=== PATIENT | male | born 1940 | race Caucasian/White ===

== ENCOUNTER 2025-02-23 15:29 | Emergency (ER) | payer MEDICARE, SELFPAY ==
[2025-02-23] VITALS (39 sets, daily range): BP systolic 166–203; BP diastolic 67–125; PULSE 78–107; RESP 12–31; TEMP 36.6–36.7; O2SAT 81–100; BMI 25.7
[2025-02-23 16:28] LABS: Absolute Lymphocyte Count 0.92 X10^3/uL (0.83-4.51); Absolute Neutrophil Count 10.5 X10^3/uL (2.0-7.7); Basophil# 0.03 X10^3/uL; Basophil% 0.2 % (0-1); Eosinophil# 0.04 X10^3/uL; Eosinophils% 0.3 % (0-5); Hematocrit 40.3 % (40-54); Hemoglobin 13.3 g/dL (13.0-16.5); Lymphocyte # 0.92 X10^3/ul (0.83-4.51); Lymphocyte % 7.6 % (19-41); Mean Corpuscular Hgb 29.5 pg (27.0-32.0); Mean Corpuscular Volume 89.4 fL (80-94); Mean Platelet Vol. 9.5 fl (6.2-12.0); Monocyte# 0.46 X10^3/uL; Monocyte% 3.8 % (0-10); NRBC Flagged by Analyzer 0 % (0-5); Neutrophil # 10.54 X10^3/uL (2.7-7.7); Neutrophil % 86.7 % (47-70); Platelet Count 267 K/mm3 (150-450); RBC Distribution Width CV 13.7 % (11.6-14.6); RBC Distribution Width SD 45.1 fl (35.1-43.9); Red Blood Count 4.51 M/mm3 (4.6-6.2); White Blood Count 12.2 K/mm3 (4.4-11.0)
--- NOTE | 2025-02-23 16:30 | CT_ITS ---
PROCEDURE: SOFT TISSUE NECK WITH CONTRAST 02/23/2025 REASON FOR EXAM: BIPHASIC STRIDOR AND HEMOPTYSIS TECHNIQUE: CT of the soft tissues of the neck from the orbits to the upper mediastinum with intravenous contrast. CONTRAST: 100 mL of Isovue 370 One or more dose reduction techniques were used (e.g., Automated exposure control, adjustment of the mA and/or kV according to patient size, use of iterative reconstruction technique). RADIATION DOSE SUMMARY: DLP: 1171 mGycm COMPARISON: None FINDINGS: Airway: Grossly unremarkable except the distal trachea and left primary bronchi; please see concurrent CT chest for further details. Salivary glands: Unremarkable Lymph nodes: No gross adenopathy within the neck and cervical chain. Thyroid: 9 mm nodule within the left thyroid gland. 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 Somewhat diminutive right CARDIOVASCULAR RADIOLOGIC TECHNOLOGIST, partially evaluated. Orbits: Unremarkable Paranasal sinuses and mastoids: Unremarkable Lung apices: Please see concurrent CT chest Upper mediastinum: Left paratracheal heterogenously enhancing mass (series 3, image 1) better characterized on concurrent CT chest. Bones: Moderate multilevel degenerative changes of the cervical spine. No acute fractures. CT/Soft Tissue Neck WITH Contrast IMPRESSION: Please see concurrent CT chest for evaluation of upper mediastinal mass with in vasion of the left distal tracheal wall and left primary bronchi wall. No gross adenopathy within the bilateral neck soft tissu es or cervical chains. Reading Location: [id number]
--- NOTE | 2025-02-23 16:30 | CT_ITS ---
PROCEDURE: CTA CHEST W/WO CONTRAST 02/23/2025 REASON FOR EXAM: DYSPNEA, EXPIRATORY WHEEZING AND HEMOPTYSIS TECHNIQUE: CTA axial imaging of the chest with intravenous contrast. Multiplanar and multisequence images were obtained. PATIENT PREPARATION: Per protocol CONTRAST: 100 mL of Isovue 370 One or more dose reduction techniques were used (e.g., Automated exposure control, adjustment of the mA and/or kV according to patient size, use of iterative reconstruction technique). RADIATION DOSE SUMMARY: DLP: 1171 mGycm . COMPARISON: None FINDINGS: PULMONARY ARTERIES: No evidence of pulmonary embolism. LUNGS AND PLEURA: No consolidations. Scattered tree-in-bud peripheral densities may reflect atypical pneumonia versus postinflammatory changes. Biapical pneumatoceles. Mild pulmonary emphysema. No definite pulmonary edema. No mass or nodule. No pleural effusion. No pneumothorax. Calcification of the right pleura. MEDIASTINUM: Left paratracheal mass measuring 4.9 x 3.5 x 3.8 cm (series 2, image 94 and series 601.2, image 142) with invasion of the distal left tracheal wall and invasion and abutment of the proximal left primary bronchi airway and wall with mild airway stenosis. Scattered smaller mediastinal lymph nodes. The heart shows no acute findings. Mild coronary atherosclerosis. The aorta shows no acute findings. The pulmonary trunk, and branches of the vessels in the mediastinum are within normal limits. SUPRACLAVICULAR AND AXILLARY: No abnormalities seen in these regions. No mass or significant lymphadenopathy. UPPER ABDOMEN: Gallstone. BONES AND SOFT TISSUES: The ribs are unremarkable. The visualized spine shows no significant acute findings. No focal bony mass lesions noted. The subcutaneous soft tissues are unremarkable. 9 mm nodule within the left thyroid gland. CT/CTA Chest W/WO Contrast IMPRESSION: Left paratracheal mass measuring 4.9 x 3.5 x 3.8 cm (series 2, image 94 and ser ies 601.2, image 142) with invasion of the distal left tracheal wall and invasion and abutment of the proximal left primary bron chi airway and wall with mild airway stenosis. No acute pulmonary emboli. No focal consolidation. Scattered tree-in-bud perip heral densities may reflect atypical pneumonia versus postinflammatory changes. Biapical pneumatoceles. Mild pulmonary emphys holly. Calcification of the right pleura. Reading Location: [id number]
[2025-02-23 16:38] LABS: International Normalized Ratio 1.1; Prothrombin Time (Protime)PT. 13.9 SECONDS (11.7-14.9)
[2025-02-23 16:46] LABS: Anion Gap 11 (5-15); BUN 35 mg/dL (4-19); BUN/Creat Ratio 28.8 RATIO (10-20); Carbon Dioxide 23.8 mmol/L (21.0-32.0); Chloride 104 mmol/L (98-108); Creatinine, Serum 1.21 mg/dL (0.70-1.20); EST Glomerular Filtration Rate 59 (>60); Estimated Creatinine Clearance 46.26 ml/min (50-250); Glucose 104 mg/dL (70-99); Potassium 4.4 mmol/L (3.3-5.1); Sodium Level 138 mmol/L (133-145)
[2025-02-23] MEDS: DiphenhydrAMINE 50 MG/ML Syringe IV (16:47)
--- NOTE | 2025-02-23 16:49 | EX.ED.DYSGE1 ---
HPI History of Present Illness Chief Complaint: GI Bleed Detail of Chief Complaint: Hemoptysis not hematemesis Informant: patient, legal guardian and family Onset/Context/Timing Onset: Weeks (Onset 1 to 2 weeks ago) Context: Gradual Onset Timing: Intermittent Quality: Alberto hemoptysis with clots Location: Respiratory Current Severity: Moderate Maximum Severity: Moderate Worsened by: Nothing Relieved by: Nothing Associated Symptoms Associated Symptoms: Detailed HPI narrative Narrative Narrative: Patient is a 84-year-old male. He has history of COPD. He has not smoked in 20 years. He was seen at outside facility last February 17. He had a chest x-ray, CBC, electrolyte panel, troponin and EKG. Chest x-ray with single view. states he has 2 known nodules on his lung with no change. There is no history of VTE. He denies leg pain or discoloration. He has had swelling of his feet. His not been as active. He denies recent travel, surgery or hospitalization. He was treated with prednisone for his bronchitis. Patient does have history of dysphonia. He is seen by data collection technician who is affiliated at [facility]. He had a recent scope, January of this year. 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 The abnormal breathing sounds started 1 to 1.5 weeks ago. The hemoptysis started 1 to 2 weeks ago. He is not on an anticoagulant or antithrombotic. He denies fever, chills night sweats. Nuys headache, visual, ocular auditory symptoms. He denies upper respiratory infectious symptoms other than a cough and hemoptysis. He denies abdominal pain, nausea, vomiting or diarrhea. He denies melena or hematochezia. He denies hematuria. He denies bruising easily. Prior similar symptoms: Yes Recent Illness/Hospitalization: Yes (Records for office visit at [facility] were reviewed as well as no) [facility] Medical History HTN (hypertension) High cholesterol GERD (gastroesophageal reflux disease) Neuropathy Gout COPD (chronic obstructive pulmonary disease) Allergy/AdvReac Type Severity Reaction Status Date / Time iodine Allergy Mild Itching Verified 02/23/25 15:31 lansoprazole (From Prevacid) Allergy Mild Itching Verified 02/23/25 15:31 Social History (Updated 02/23/25 @ 16:[address] Jules Dacosta MD) household members: spouse Smoking Status: Former smoker ROS ROS ED Constitutional Constitutional ED: Reports weight loss and other Details: Patient reports a 6 pound weight loss over the past week. ; Denies chills, fever(s), subjective or sweats Eyes Eyes: Denies blurry vision or change in vision ENT ENT ED: Reports other Details: Dysphonia which has been present since October. Possibly slightly worse. ; Denies ear pain, rhinorrhea or sore throat Cardiovascular Cardiovascular: Denies chest pain, orthopnea, palpitations, paroxysmal nocturnal dyspnea or racing heartbeat Respiratory/Chest Respiratory/Chest: Reports cough, dyspnea, dyspnea on exertion and other Details: Hemoptysis with clots. Also complains of wheezing. Reports sleeping with 2 pillows recently for comfort ; Denies orthopnea or paroxysmal nocturnal dyspnea Gastrointestinal Gastrointestinal: Reports constipation and other Details: informing over the past week has had problems with constipation. ; Denies abdominal pain, diarrhea, melena, nausea or vomiting Genitourinary Genitourinary ED: Denies dysuria or hematuria Musculoskeletal Musculoskeletal: Denies back pain or neck pain Integumentary Denies rash Neurologic Neurologic: Denies headache(s) or weakness Endocrine Endocrinology: Denies cold intolerance or heat intolerance Hematologic/Lymphatic Hematologic/Lymphatic: Reports systems reviewed and no addt'l complaints, except as documented EXAM Physical Exam Const Vital Signs: 02/23/25 15:31 02/23/25 15:53 02/23/25 15:55 Temperature 97.8 F Temperature Source Oral Pulse Rate 95 90 Respiratory Rate 16 16 Respiratory Effort Normal Non-Labored Respiratory Depth Shallow Respiratory Pattern Tachypnea Blood Pressure 197/75 H Blood Pressure Mean 115 Pulse Ox 96 95 Oxygen Delivery Method Room Air Room Air 02/23/25 16:00 02/23/25 16:15 02/23/25 16:30 Temperature Temperature Source Pulse Rate 91 84 80 Respiratory Rate 31 H 17 17 Respiratory Effort Respiratory Depth Respiratory Pattern Blood Pressure Blood Pressure Mean Pulse Ox 95 97 Oxygen Delivery Method 02/23/25 16:45 02/23/25 16:46 02/23/25 17:00 Temperature Temperature Source Pulse Rate 84 82 Respiratory Rate 15 13 Respiratory Effort Respiratory Depth Respiratory Pattern Blood Pressure 171/67 H 169/80 H Blood Pressure Mean 95 108 Pulse Ox 99 98 Oxygen Delivery Method 02/23/25 17:15 02/23/25 17:27 02/23/25 17:30 Temperature Temperature Source Pulse Rate 78 78 Respiratory Rate 21 H 19 H Respiratory Effort Respiratory Depth Respiratory Pattern Blood Pressure 169/80 H Blood Pressure Mean 109 Pulse Ox 98 98 99 Oxygen Delivery Method Room Air 02/23/25 17:45 02/23/25 18:00 02/23/25 18:15 Temperature Temperature Source Pulse Rate 83 83 85 Respiratory Rate 21 H 14 19 H Respiratory Effort Respiratory Depth Respiratory Pattern Blood Pressure 166/125 H Blood Pressure Mean 138 Pulse Ox 96 96 97 Oxygen Delivery Method 02/23/25 18:30 02/23/25 18:57 02/23/25 19:00 Temperature Temperature Source Pulse Rate 87 87 89 Respiratory Rate 17 20 H Respiratory Effort Respiratory Depth Respiratory Pattern Blood Pressure 203/83 H Blood Pressure Mean 114 Pulse Ox 98 81 95 Oxygen Delivery Method Positive well nourished and well developed Constitutional Narrative: Patient has audible inspiratory and expiratory stridor. Patient has dysphonia. General Appearance ED: well developed and NAD; Negative for cyanotic, diaphoretic or pallor HEENT Reports moist mucous membranes HEENT Narrative: Head is atraumatic no cephalic. Ears normal. Nares patent. There is no drainage or discharge noted. Posterior pharynx reveals a midline uvula. There is no deviation with protrusion. Patient does have dysphonia. Negative for trauma or tenderness Eyes PERRL and EOMs intact bilaterally General Eye ED: Negative for pale conjunctiva or scleral icterus Neck no lymphadenopathy, supple and no JVD Neck Narrative: Trachea is midline. Patient has biphasic stridor. Chest Wall inspection of chest normal and palpation of chest normal Resp normal respiratory effort and No clear to auscultation bilaterally Auscultation: wheezes expiratory wheezes and scattered wheezes (Predominantly of the lower lung ordonez bilaterally) Cardio regular rate, regular rhythm, S1 normal heart sound, S2 normal heart sound and no murmurs GI normal to inspection, nondistended, normoactive bowel sounds, non-tender, non-distended and no masses; Negative for hepatosplenomegaly Extremity normal to inspection Extremity Narrative: 1 mm pitting edema right and left foot. Neuro oriented x3 and CN's II-XII intact bilaterally Sensorium / Orientation: alert Motor Exam: strength 5/5 throughout Psych mental status grossly normal Psych Narrative: When I went back into assess what patient's allergy is to iodine he appeared flushed. informing that he is crying. He informed that he has itching. Skin no rashes or lesions noted, no wounds and skin turgor normal General Skin Exam: Negative for jaundice or pallor MDM MDM MDM Narrative Medical decision making narrative: Patient not improving with aerosol and prednisone and has alberto mopped assist with biphasic stridor need to assess for neck pathology and pulmonary pathology. CT of the neck with contrast and CTA of the chest was obtained as well as appropriate blood work. CBC was obtained to assess white count differential and H&H as well as platelet count. Of note there is no petechia of the lower extremity. Electrolyte panel to assess renal function since he will need CT with contrast. Since he had a normal troponin and chest x-ray that was single view this was not repeated specially since a CAT scan is warranted. History & Record Review Additional record(s) reviewed:: Prior outpatient record (Outpatient records from [facility] and ENT records from 1 week ago and January respectively.) Lab Data Attestation: I reviewed the patient's lab results. Lab results narrative: White count slight elevated 12.2 with left. This may be due to prednisone. H&H is normal. Electrolyte panel reveals a creatinine of 1.21 with an estimated GFR of 59. Glucose slightly elevated at 104 with a normal CO2 anion gap. PT/INR is normal. Platelet count is normal. Labs: Laboratory Results - last 24 hr 02/23/25 16:15 WBC 12.2 H RBC 4.51 L Hgb 13.3 Hct 40.3 MCV 89.4 MCH 29.5 MCHC 33.0 RDW Std Deviation 45.1 H RDW Coeff of Elizabeth 13.7 Plt Count 267 MPV 9.5 Immature Gran % (Auto) 1.400 H Neut % (Auto) 86.7 H Lymph % (Auto) 7.6 L [place] % (Auto) 3.8 Eos % (Auto) 0.3 Baso % (Auto) 0.2 Absolute Neuts (auto) 10.5 H Absolute Lymphs (auto) 0.92 Nucleated RBC % 0 PT 13.9 INR 1.1 Sodium 138 Potassium 4.4 Chloride 104 Carbon Dioxide 23.8 Anion Gap 11 BUN 35 H Creatinine 1.21 H Estim Creat Clear Calc 46.26 L Est GFR (MDRD) Non-Af 59 L BUN/Creatinine Ratio 28.8 H Glucose 104 H Calcium 9.0 Radiography Diagnostic Testing: Clinical Impression(s) from Imaging Studies Chest CTA 02/23/25 16:30 IMPRESSION: Left paratracheal mass measuring 4.9 x 3.5 x 3.8 cm (series 2, image 94 and series 601.2, image 142) with invasion of the distal left tracheal wall and invasion and abutment of the proximal left primary bronchi airway and wall with mild airway stenosis. No acute pulmonary emboli. No focal consolidation. Scattered tree-in-bud peripheral densities may reflect atypical pneumonia versus postinflammatory changes. Biapical pneumatoceles. Mild pulmonary emphysema. Calcification of the right pleura. Reading Location: [facility] Soft Tissue Neck CT 02/23/25 16:30 IMPRESSION: Please see concurrent CT chest for evaluation of upper mediastinal mass with invasion of the left distal tracheal wall and left primary bronchi wall. No gross adenopathy within the bilateral neck soft tissues or cervical chains. Reading Location: [facility] Patient, spouse and son were made aware of the CT findings. They were informed that the he will require transfer. is contacting other family which determine which facility to transfer. Options were [facility] in [place], [facility] in [place], [facility] in [place] and [facility] in [place]. Management Discussion w/another healthcare provider: Radiologist (Spoke with radiologist. He informed me of the mass and findings.) and Other (Spoke with [facility] Transfer line. She recommended [facility]. I spoke with the nurse at [facility] transfer line. He will contact both cardiothoracic and pulmonary. After peaking with cardiothoracic and pulmonary recommended admission to ICU. I did speak with Dr. Barorw. Dr. Bearden) Critical Care Time Critical Care Time: Yes Critical care time (excluding procedures): 30-74 minutes (33), Including time spent: (History, physical, documentation, review of records from [facility] and outside ER from last week, review of prior labs independent rotation of laboratory results and review of images), Discussing w/Patient &/or Family/Charter Bus Driver (Discussion with patient, spouse and family emergency regarding need for transfer. They requested [facility] Discussing w/Consultants (Spoke to transfer nurse at [facility] That referred to [facility] because of the findings on CAT scan and need for higher level of care and reason for transfer to [facility]) and Arranging Admission or Transfer (Documented prior portion of the record) Discharge Plan Triage Chief Complaint: GI Bleed ED Provider: Jules Dacosta Dx/Rx/DC Orders Clinical Impression: Major hemoptysis, Peritracheal mass, Paralysis of left vocal cord, Biphasic stridor, Elevated blood pressure reading with diagnosis of hypertension, Prerenal azotemia, Elevated serum creatinine, Unintentional weight loss of 1-2% body weight within 1 week Primary Care Provider: Castillo Mcadams Referrals: Castillo Mcadams PA [Primary Care Provider] - Print Language: Spanish Disposition Disposition: Acute Care Hospital Discharge Location: [facility]
--- NOTE | 2025-02-23 22:29 | ED.RN ---
[facility]IS[facility]TE AT [facility] GIVEN REPORT.
--- NOTE | 2025-02-23 23:11 | PCA ---
Called [facility] to arrange transport @ 2155. ETA at least 4-5+ hours, so called [facility] transport to see if they'd be available. Called @ 2158, unable to do so d/t flight & ground crew coming for different pt here. Had another critical transport already arranged elsewhere that took priority to had to decline ride altogether. Called [facility] ground @ 2206, did not have availability. Called [facility] ground @ 2209, also had no availability tonight. They informed us we could call about potential flight, but d/t weather it would be unlikely. [facility] to set up ride, eta is [phone]. Will call us back if can be any sooner.
[2025-02-24] VITALS (17 sets, daily range): BP systolic 152–169; BP diastolic 73–91; PULSE 72–85; RESP 13–19; O2SAT 93–98
--- NOTE | 2025-02-24 04:10 | PCA ---
Called [facility] @ 0410 to follow up and see if eta is still [phone]. They stated ride is now pushed back until 0630.
== END 2025-02-24 06:57 | disposition short-term general hospital (02) ==
PROVIDERS: Emergency Provider Emergency Medicine; PCP Physician Assistant; Visit Provider Emergency Medicine
DX: R04.2 Hemoptysis (principal); J44.9 Chronic obstructive pulmonary disease, unspecified; J39.8 Other specified diseases of upper respiratory tract; J38.01 Paralysis of vocal cords and larynx, unilateral; R03.0 Elevated blood-pressure reading, without diagnosis of hypertension; R79.89 Other specified abnormal findings of blood chemistry; R63.4 Abnormal weight loss; Z87.891 Personal history of nicotine dependence
CPT/HCPCS: 70491; 71275; 80048; 85025; 85610; 96374; 96375; 99285; Q9967; A4216